=== PATIENT | female | born 1945 | race Caucasian/White ===

== ENCOUNTER 2017-04-03 15:08 | Inpatient (IN) | payer MEDICARE, MEDICAID, OTHER ==
[2017-04-03] MEDS ORDERED: MIDAZOLAM 1 MG/ML 2 ML INJ ×2 (18:13→19:08)
[2017-04-03] MEDS ORDERED: FENTAnyl 50 MCG/ML VIAL (18:14)
[2017-04-03] MEDS ORDERED: ROCURONIUM 50 MG INJ (18:41)
[2017-04-03] MEDS ORDERED: ETOMIDATE 20 MG INJ (18:41)
[2017-04-03] MEDS ORDERED: LIDOCAINE 2% (SDV) 5 ML INJ (18:41)
[2017-04-03] MEDS ORDERED: CEFAZOLIN 1 GM INJ (18:41)
[2017-04-03] MEDS ORDERED: LABETALOL HCL 20MG INJ (19:10)
[2017-04-03] MEDS: LABETALOL HCL 20MG INJ IV (19:19)
[2017-04-03] MEDS: MIDAZOLAM 1 MG/ML 2 ML INJ IV ×2 (19:19→19:54)
[2017-04-03] MEDS: DEXTROSE 5%-0.45% NACL 1,000 ML IV (19:22)
[2017-04-03] MEDS: LORAZEPAM 2 MG INJ IV (19:27)
[2017-04-03] MEDS ORDERED: ALBUTEROL HFA 8 GM INHALER INH (19:30)
[2017-04-03] MEDS: ACCU-CHEK XX (19:30)
[2017-04-03] MEDS ORDERED: HYDROmorphONE (0.2 MG/ML) 10ML SYG IV ×2 (19:30)
[2017-04-03] MEDS ORDERED: morphine 2 MG INJ IV (19:30)
[2017-04-03] MEDS ORDERED: hydrALAzine 20 MG INJ IV (19:30)
[2017-04-03] MEDS ORDERED: ACETAMINOPHEN 650 MG SUPP PR (19:30)
[2017-04-03] MEDS ORDERED: NACL 0.9% 3 ML SYG IV (19:30)
[2017-04-03] MEDS ORDERED: MEPERIDINE 25 MG INJ IV (19:30)
[2017-04-03] MEDS ORDERED: ONDANSETRON 4 MG INJ IV ×2 (19:30)
[2017-04-03] MEDS: FENTAnyl 50 MCG/ML VIAL IV ×2 (19:54→20:41)
[2017-04-03] MEDS ORDERED: GLUCOSE GEL 15 GRAM TUBE BUCCAL (20:00)
[2017-04-03] MEDS ORDERED: DEXTROSE 50% 50 ML SYRINGE IV ×2 (20:00)
[2017-04-03] MEDS ORDERED: GLUCOSE GEL 15 GRAM TUBE PO ×2 (20:00)
[2017-04-03] MEDS ORDERED: GLUCAGON 1 MG INJ IM (20:00)
[2017-04-03] MEDS: INSULIN ASPART [NOVOLOG] 3 ML PEN SC (21:00)
[2017-04-03] MEDS: ALBUTEROL HFA 8 GM INHALER INH (21:00)
[2017-04-03] MEDS: IPRATROPIUM (HFA) 12.9 GM INHALER INH (21:00)
[2017-04-03] MEDS: ATORVASTATIN 80 MG TAB PO (21:30)
[2017-04-03] MEDS: GABAPENTIN 400 MG CAP NGT (21:31)
[2017-04-03] MEDS: RANOLAZINE (SR) 500 MG TAB PO (21:31)
[2017-04-03] MEDS: METHIMAZOLE 5 MG TAB PO (21:32)
[2017-04-03] MEDS: METOPROLOL 25 MG TAB NGT (21:32)
[2017-04-03] MEDS: MEROPENEM 1 GM/50ML(PMX) 50 ML IVPB (22:14)
[2017-04-04] MEDS: ACCU-CHEK XX
[2017-04-04] MEDS: ALBUTEROL HFA 8 GM INHALER INH ×6 (01:00→21:43)
[2017-04-04] MEDS: IPRATROPIUM (HFA) 12.9 GM INHALER INH ×7 (01:00→21:43)
[2017-04-04] MEDS: LABETALOL HCL 20MG INJ IV (01:52)
[2017-04-04] MEDS: hydrALAzine 20 MG INJ IV (04:27)
[2017-04-04 05:19] LABS: ADD MAN DIFF? NO
[2017-04-04 05:28] LABS: WHITE BLOOD COUNT 7.6 10^3/ul (4.8-10.8)
[2017-04-04 05:28] LABS: ABNORMAL IP MESSAGE 1; HEMATOCRIT 29.9 % (37.0-47.0); HEMOGLOBIN 9.1 g/dl (12.0-16.0); LYMPHOCYTES # 0.3 10^3/ul (0.8-2.9); LYMPHOCYTES % 3.3 % (15.0-51.0); MEAN CORPUSCULAR HEMOGLOBIN 28.8 pg (29.0-33.0); MEAN CORPUSCULAR HGB CONC 30.4 g/dl (32.0-37.0); MEAN CORPUSCULAR VOLUME 94.6 fl (82.0-101.0); MEAN PLATELET VOLUME 10.1 fl (7.4-10.4); MONOCYTE # 0.2 10^3/ul (0.3-0.9); MONOCYTES % 2.4 % (0.0-11.0); NEUTROPHIL # 7.2 10^3/ul (1.6-7.5); NEUTROPHILS % 93.6 % (39.0-77.0); PLATELET COUNT 132 10^3/UL (140-415); RED BLOOD COUNT 3.16 10^6/ul (4.20-5.40); RED CELL DISTRIBUTION WIDTH 14.6 % (11.5-14.5)
[2017-04-04 05:31] LABS: HOLD TRANSMISSIONS 1
[2017-04-04 05:32] LABS: POSITIVE DIFF @See below
[2017-04-04] MEDS: MEROPENEM 1 GM/50ML(PMX) 50 ML IVPB ×3 (06:01→23:05)
[2017-04-04] MEDS: PANTOPRAZOLE 40 MG INJ IV (06:01)
[2017-04-04] MEDS: DEXTROSE 5%-0.45% NACL 1,000 ML IV (06:01)
[2017-04-04 06:05] LABS: ALANINE AMINOTRANSFERASE 39 IU/L (13-69); ALBUMIN 2.4 g/dl (3.3-4.9); ALBUMIN/GLOBULIN RATIO 0.92; ALKALINE PHOSPHATASE 103 IU/L (42-121); ANION GAP 11 (8-16); ASPARTATE AMINO TRANSFERASE 21 IU/L (15-46); CARBON DIOXIDE 35 mmol/L (21-31); CHLORIDE 108 mmol/L (97-110); GLUCOSE 161 mg/dl (70-220); MAGNESIUM 2.3 mg/dl (1.7-2.5)
[2017-04-04 07:13] LABS: BLOOD UREA NITROGEN 72 mg/dl (7-20); CALCIUM 9.7 mg/dl (8.4-10.2); CREATININE 0.78 mg/dl (0.44-1.00); POTASSIUM 3.7 mmol/L (3.5-5.1); SODIUM 150 mmol/L (135-144); THYROID STIMULATING HORMONE < 0.015 MIU/L (0.465-4.680)
[2017-04-04] MEDS: INSULIN ASPART [NOVOLOG] 3 ML PEN SC ×4 (08:08→21:00)
[2017-04-04] MEDS: LORAZEPAM 2 MG INJ IV ×4 (08:34→17:40)
[2017-04-04] MEDS: morphine 2 MG INJ IV ×3 (08:34→15:13)
[2017-04-04] MEDS: GABAPENTIN 400 MG CAP NGT ×4 (09:19→22:30)
[2017-04-04] MEDS: RANOLAZINE (SR) 500 MG TAB PO ×2 (09:19→22:31)
[2017-04-04] MEDS: METOPROLOL 25 MG TAB NGT ×2 (09:19→22:31)
[2017-04-04] MEDS: predniSONE 50 MG TAB NGT (09:19)
[2017-04-04] MEDS: METHIMAZOLE 5 MG TAB PO ×3 (09:19→23:06)
[2017-04-04] MEDS: BALSAM PERU/CASTOR OIL 60 GM TUBE TOP (10:46)
[2017-04-04] MEDS: ATORVASTATIN 80 MG TAB PO (22:30)
[2017-04-04 23:38] LABS: AADO2 Arterial 129.3 mmHg (7.0-24.0); Allen Test ACCEPTAB; Arterial Base Excess 10.3 mmol/L (-3.0-3); Arterial Blood Gas Oxygen Sat 97.2 mmHG (95.0-100.0); Arterial COHb 0.3 % (0.0-3.0); Arterial Fraction of Oxyhgb 96.7 % (93.0-99.0); Arterial HCO3 35.2 mmol/L (22.0-26.0); Arterial MetHb 0.2 % (0.0-1.5); Arterial Total Hemglobin 10.4 g/dl (12.0-18.0); MODE VENT - AC; Site Right Radial
[2017-04-05] MEDS: DEXTROSE 5%-0.45% NACL 1,000 ML IV (00:14)
[2017-04-05] MEDS: IPRATROPIUM (HFA) 12.9 GM INHALER INH ×5 (01:24→19:30)
[2017-04-05] MEDS: ALBUTEROL HFA 8 GM INHALER INH (01:24)
[2017-04-05] MEDS: hydrALAzine 20 MG INJ IV ×2 (04:27→16:33)
[2017-04-05 05:24] LABS: Allen Test ACCEPTAB; Arterial Base Excess 9.4 mmol/L (-3.0-3); Arterial Blood Gas Oxygen Sat 94.4 mmHG (95.0-100.0); Arterial COHb 0.3 % (0.0-3.0); Arterial Fraction of Oxyhgb 93.9 % (93.0-99.0); Arterial MetHb 0.2 % (0.0-1.5); Arterial Total Hemglobin 9.6 g/dl (12.0-18.0); MODE VENT - AC; Site Right Radial
[2017-04-05] MEDS: PANTOPRAZOLE 40 MG INJ IV (05:40)
[2017-04-05] MEDS: MEROPENEM 1 GM/50ML(PMX) 50 ML IVPB ×3 (05:40→22:36)
[2017-04-05] MEDS: ACCU-CHEK XX ×4 (06:00→17:28)
[2017-04-05] MEDS: GABAPENTIN 400 MG CAP NGT ×4 (08:54→22:38)
[2017-04-05] MEDS: ASPIRIN 81 MG TAB GTB (08:54)
[2017-04-05] MEDS: RANOLAZINE (SR) 500 MG TAB PO ×2 (08:54→22:37)
[2017-04-05] MEDS: METOPROLOL 25 MG TAB NGT ×2 (08:54→22:37)
[2017-04-05] MEDS: predniSONE 50 MG TAB NGT (08:54)
[2017-04-05] MEDS: METHIMAZOLE 5 MG TAB PO ×3 (08:55→22:38)
[2017-04-05] MEDS: BALSAM PERU/CASTOR OIL 60 GM TUBE TOP (09:06)
[2017-04-05] MEDS: INSULIN ASPART [NOVOLOG] 3 ML PEN SC (09:08)
[2017-04-05] MEDS: LEVALBUTEROL (HFA) 15 GM INHALER INH ×4 (09:22→19:30)
[2017-04-05] MEDS ORDERED: INSULIN ASPART [NOVOLOG] 3 ML PEN SC (12:00)
[2017-04-05] MEDS: Insulin NOVOLOG SS MODERATE Algorithm(NPO/TPN/ENTERAL FEEDS) SC ×3 (12:52→23:08)
[2017-04-05] MEDS: DEXTROSE 5% 1,000 ML IV (16:20)
[2017-04-05] MEDS: morphine 2 MG INJ IV (17:33)
[2017-04-05] MEDS: ATORVASTATIN 80 MG TAB PO (22:37)
[2017-04-05] MEDS: INSULIN DETEMIR [LEVEMIR] 3ML CART SC (23:11)
[2017-04-06] MEDS: Insulin NOVOLOG SS MODERATE Algorithm(NPO/TPN/ENTERAL FEEDS) SC ×5 (01:56→17:07)
[2017-04-06] MEDS: morphine 2 MG INJ IV (04:57)
[2017-04-06] MEDS: ACETAMINOPHEN 325 MG TAB PO (05:25)
[2017-04-06] MEDS: PANTOPRAZOLE 40 MG INJ IV (05:25)
[2017-04-06] MEDS: MEROPENEM 1 GM/50ML(PMX) 50 ML IVPB ×2 (05:26→14:08)
[2017-04-06 07:30] LABS: ADD MAN DIFF? NO
[2017-04-06 07:36] LABS: ABNORMAL IP MESSAGE 1; EOSINOPHILS % 0.1 % (0.0-7.0); HEMATOCRIT 28.1 % (37.0-47.0); HEMOGLOBIN 8.6 g/dl (12.0-16.0); LYMPHOCYTES # 0.5 10^3/ul (0.8-2.9); LYMPHOCYTES % 4.6 % (15.0-51.0); MEAN CORPUSCULAR HEMOGLOBIN 29.2 pg (29.0-33.0); MEAN CORPUSCULAR HGB CONC 30.6 g/dl (32.0-37.0); MEAN CORPUSCULAR VOLUME 95.3 fl (82.0-101.0); MONOCYTE # 0.4 10^3/ul (0.3-0.9); MONOCYTES % 4.1 % (0.0-11.0); NEUTROPHIL # 9.2 10^3/ul (1.6-7.5); NEUTROPHILS % 90.8 % (39.0-77.0); PLATELET COUNT 122 10^3/UL (140-415); RED BLOOD COUNT 2.95 10^6/ul (4.20-5.40); RED CELL DISTRIBUTION WIDTH 15.3 % (11.5-14.5)
[2017-04-06 07:36] LABS: WHITE BLOOD COUNT 10.1 10^3/ul (4.8-10.8)
[2017-04-06 07:46] LABS: POSITIVE DIFF @See below
[2017-04-06 08:19] LABS: ALANINE AMINOTRANSFERASE 29 IU/L (13-69); ALBUMIN 2.1 g/dl (3.3-4.9); ALBUMIN/GLOBULIN RATIO 0.91; ALKALINE PHOSPHATASE 84 IU/L (42-121); ANION GAP 10 (8-16); ASPARTATE AMINO TRANSFERASE 18 IU/L (15-46); BILIRUBIN,INDIRECT 0.1 mg/dl (0-1.1); BILIRUBIN,TOTAL 0.1 mg/dl (0.2-1.3); BLOOD UREA NITROGEN 57 mg/dl (7-20); CALCIUM 8.8 mg/dl (8.4-10.2); CARBON DIOXIDE 35 mmol/L (21-31); CHLORIDE 109 mmol/L (97-110); CREATININE 0.68 mg/dl (0.44-1.00); GLUCOSE 195 mg/dl (70-220); POTASSIUM 3.5 mmol/L (3.5-5.1); SODIUM 150 mmol/L (135-144); TOTAL PROTEIN 4.4 g/dl (6.1-8.1)
[2017-04-06 08:21] LABS: PHOSPHORUS 2.3 mg/dl (2.5-4.9)
[2017-04-06 08:21] LABS: MAGNESIUM 2.1 mg/dl (1.7-2.5)
[2017-04-06] MEDS: IPRATROPIUM (HFA) 12.9 GM INHALER INH ×4 (08:43→19:20)
[2017-04-06] MEDS: LEVALBUTEROL (HFA) 15 GM INHALER INH ×4 (08:45→19:20)
[2017-04-06] MEDS: METHIMAZOLE 5 MG TAB PO ×2 (09:02→12:45)
[2017-04-06] MEDS: predniSONE 50 MG TAB NGT (09:02)
[2017-04-06] MEDS: ASPIRIN 81 MG TAB GTB (09:02)
[2017-04-06] MEDS: METOPROLOL 25 MG TAB NGT (09:02)
[2017-04-06] MEDS: GABAPENTIN 400 MG CAP NGT ×3 (09:02→16:40)
[2017-04-06] MEDS: RANOLAZINE (SR) 500 MG TAB PO (09:03)
[2017-04-06] MEDS: BALSAM PERU/CASTOR OIL 60 GM TUBE TOP (09:38)
[2017-04-06] MEDS: NPH, HUMAN INSULIN ISOPHANE 3ML VIAL SC (09:38)
[2017-04-06 11:26] LABS: AADO2 Arterial 116.8 mmHg (7.0-24.0); Allen Test ACCEPTAB; Arterial Base Excess 10.8 mmol/L (-3.0-3); Arterial Blood Gas Oxygen Sat 97.1 mmHG (95.0-100.0); Arterial COHb 0.3 % (0.0-3.0); Arterial Fraction of Oxyhgb 96.7 % (93.0-99.0); Arterial HCO3 36.5 mmol/L (22.0-26.0); Arterial MetHb 0.1 % (0.0-1.5); Arterial Total Hemglobin 9.9 g/dl (12.0-18.0); Blood Gas PS 10; MODE VENT - SIMV; Site Right Radial
[2017-04-06] MEDS: DEXTROSE 5% 1,000 ML IV (15:30)
== END 2017-04-06 20:40 | DRG 4 ==
LOC: REC 19:07 → TEL 04-04 19:50 → SUR 15:08 → SDS 15:27 → SUR 19:07 → REC 19:16
PROVIDERS: Thoracic Surgery (Cardiothoracic Vascular Surgery)
PROC: 0B110F4 Bypass Trachea to Cutaneous with Tracheostomy Device, Open Approach (ICD-10-PCS; principal; 2017-04-03 15:30)
PROC: 5A1945Z Respiratory Ventilation, 24-96 Consecutive Hours (ICD-10-PCS; 2017-04-03 15:30)
PROC: 5A09357 Assistance with Respiratory Ventilation, Less than 24 Consecutive Hours, Continuous Positive Airway Pressure (ICD-10-PCS; 2017-04-03 18:05)
PROC: 4A133R1 Monitoring of Arterial Saturation, Peripheral, Percutaneous Approach (ICD-10-PCS; 2017-04-03 18:05)
DX: J96.11 Chronic respiratory failure with hypoxia (principal); I21.4 Non-ST elevation (NSTEMI) myocardial infarction; G93.40 Encephalopathy, unspecified; J18.9 Pneumonia, unspecified organism; I11.0 Hypertensive heart disease with heart failure; E87.0 Hyperosmolality and hypernatremia; J44.0 Chronic obstructive pulmonary disease with (acute) lower respiratory infection; E11.40 Type 2 diabetes mellitus with diabetic neuropathy, unspecified; I50.9 Heart failure, unspecified; E11.65 Type 2 diabetes mellitus with hyperglycemia; Z68.44 Body mass index [BMI] 60.0-69.9, adult; E66.2 Morbid (severe) obesity with alveolar hypoventilation; J96.12 Chronic respiratory failure with hypercapnia; I48.91 Unspecified atrial fibrillation; R13.10 Dysphagia, unspecified; E05.80 Other thyrotoxicosis without thyrotoxic crisis or storm; K59.00 Constipation, unspecified; D64.9 Anemia, unspecified; I25.10 Atherosclerotic heart disease of native coronary artery without angina pectoris; E78.00 Pure hypercholesterolemia, unspecified; R19.5 Other fecal abnormalities; G47.00 Insomnia, unspecified; E88.09 Other disorders of plasma-protein metabolism, not elsewhere classified; G89.4 Chronic pain syndrome; Z87.891 Personal history of nicotine dependence; T38.0X5A Adverse effect of glucocorticoids and synthetic analogues, initial encounter; Z87.440 Personal history of urinary (tract) infections; T46.2X5A Adverse effect of other antidysrhythmic drugs, initial encounter
CPT/HCPCS: 36600; 71045; 80053; 82803; 82962; 83735; 84100; 84443; 85025; 87081; 94002; 94003; 94640; 94664; 94799; 99217; G0378

== ENCOUNTER → 2017-04-17 | Day surgery (SDC) | payer OTHER, MEDICAID, MEDICARE ==
[~2017-04-17] MED LIST: ALBUTEROL 0.083% (NEB) 2.5 MG/3 ML AMP HHN; CEFAZOLIN 1 GM INJ; EPHEDrine SULFATE 50 MG/5 ML SYG; EPHEDrine SULFATE 50 MG/5 ML SYG IV; FENTAnyl 50 MCG/ML VIAL; FENTAnyl 50 MCG/ML VIAL IV; LACTATED RINGER'S 250 ML IV; ONDANSETRON 4 MG INJ IV
== END | disposition home or self-care (01) ==
LOC: SDS 08:33
DX: R13.10 Dysphagia, unspecified (principal); J96.90 Respiratory failure, unspecified, unspecified whether with hypoxia or hypercapnia; I48.91 Unspecified atrial fibrillation; E11.9 Type 2 diabetes mellitus without complications; E66.01 Morbid (severe) obesity due to excess calories; Z68.45 Body mass index [BMI] 70 or greater, adult
CPT/HCPCS: 43246; 94002

== ENCOUNTER 2017-04-21 14:01 | Inpatient (IN) | payer MEDICARE, OTHER ==
[2017-04-21] MEDS ORDERED: NORepinephrine 8MG/250 ML (PMX 250 ML (16:34)
[2017-04-21 16:58] LABS: AADO2 Arterial 604.5 mmHg (7.0-24.0); Allen Test ACCEPTAB; Arterial Base Excess -3.1 mmol/L (-3.0-3); Arterial COHb 0.3 % (0.0-3.0); Arterial Fraction of Oxyhgb 93.6 % (93.0-99.0); Arterial HCO3 21.6 mmol/L (22.0-26.0); Arterial MetHb 0.1 % (0.0-1.5); Arterial pCO2 37.2 mmhg (35-45); MODE VENT - AC; Site Right Radial
[2017-04-21] MEDS ORDERED: NORepinephrine 8MG/250 ML (PMX 250 ML IV (17:30)
[2017-04-21] MEDS ORDERED: ACETAMINOPHEN 650 MG SUPP PR (19:30)
[2017-04-21] MEDS ORDERED: ONDANSETRON 4 MG INJ IV (19:30)
[2017-04-21] MEDS ORDERED: POLYETHYLENE GLYCOL 17 GM PACKET GTB (19:30)
[2017-04-21] MEDS ORDERED: LORAZEPAM 0.5 MG TAB PO (19:30)
[2017-04-21] MEDS ORDERED: DEXTROSE 50% 50 ML SYRINGE IV (20:30)
[2017-04-21] MEDS ORDERED: GLUCAGON 1 MG INJ IM (20:30)
[2017-04-21] MEDS ORDERED: GLUCOSE GEL 15 GRAM TUBE PO ×2 (20:30)
[2017-04-21] MEDS ORDERED: GLUCOSE GEL 15 GRAM TUBE BUCCAL (20:30)
[2017-04-21] MEDS: IPRATROPIUM (HFA) 12.9 GM INHALER INH (20:42)
[2017-04-21] MEDS: ALBUTEROL HFA 8 GM INHALER INH (20:42)
[2017-04-21] MEDS: METOPROLOL 25 MG TAB PO (20:59)
[2017-04-21] MEDS: traZODone 50 MG TAB PO (21:00)
[2017-04-21] MEDS ORDERED: ALBUTEROL HFA 8 GM INHALER INH (21:00)
[2017-04-21] MEDS: NYSTATIN 30 GM POWDER BTL TOP (21:00)
[2017-04-21] MEDS ORDERED: ALBUTEROL/IPRATROPIUM (NEB) 3 ML AMP HHN (21:00)
[2017-04-21] MEDS: INSULIN ASPART [NOVOLOG] 3 ML PEN SC (21:00)
[2017-04-21] MEDS: LINEZOLID 600 MG/D5W (PMX) 300 ML IVPB (21:19)
[2017-04-21] MEDS: GABAPENTIN 400 MG CAP PO (21:25)
[2017-04-21] MEDS: FERROUS SULFATE (EC) 325 MG TAB PO (21:25)
[2017-04-21] MEDS: METHIMAZOLE 5 MG TAB PO (21:25)
[2017-04-21] MEDS: ATORVASTATIN 40 MG TAB GTB (21:26)
[2017-04-21] MEDS: DIGOXIN 0.125 MG TAB GTB (21:26)
[2017-04-21] MEDS: BALSAM PERU/CASTOR OIL 60 GM TUBE TOP (21:27)
[2017-04-21] MEDS: INSULIN DETEMIR [LEVEMIR] 3ML CART SC (21:31)
[2017-04-21] MEDS: ERYTHROMYCIN BASE (EC) 250 MG TAB PO (22:00)
[2017-04-22] MEDS: MEROPENEM 1 GM/50ML(PMX) 50 ML IVPB ×3 (00:16→21:42)
[2017-04-22] MEDS: METOCLOPRAMIDE (1 MG/ML) 10 ML CUP PO ×4 (00:22→18:06)
[2017-04-22] MEDS: INSULIN ASPART [NOVOLOG] 3 ML PEN SC ×3 (01:00→09:00)
[2017-04-22] MEDS: ALBUTEROL HFA 8 GM INHALER INH ×4 (01:28→19:37)
[2017-04-22] MEDS: IPRATROPIUM (HFA) 12.9 GM INHALER INH ×4 (01:28→19:37)
[2017-04-22] MEDS: DEXTROSE 50% 50 ML SYRINGE IV ×2 (01:52→05:03)
[2017-04-22] MEDS: ACCU-CHEK XX ×14 (02:00→23:00)
[2017-04-22] MEDS: LANSOPRAZOLE 30 MG CAP GTB (06:00)
[2017-04-22] MEDS: ERYTHROMYCIN BASE (EC) 250 MG TAB PO ×3 (06:00→22:00)
[2017-04-22 06:15] LABS: AADO2 Arterial 615.6 mmHg (7.0-24.0); Allen Test ACCEPTAB; Arterial Base Excess -4.4 mmol/L (-3.0-3); Arterial Blood Gas Oxygen Sat 90.9 mmHG (95.0-100.0); Arterial COHb 0.3 % (0.0-3.0); Arterial Fraction of Oxyhgb 90.4 % (93.0-99.0); Arterial HCO3 20.6 mmol/L (22.0-26.0); Arterial MetHb 0.2 % (0.0-1.5); Arterial Total Hemglobin 12.1 g/dl (12.0-18.0); Arterial pCO2 37.6 mmhg (35-45); Blood Gas Mean Airway Pressure 12; MODE VENT - AC; Site Right Radial
[2017-04-22 07:01] LABS: ABNORMAL IP MESSAGE 1; HEMATOCRIT 36.6 % (37.0-47.0); HEMOGLOBIN 11.4 g/dl (12.0-16.0); MEAN CORPUSCULAR HEMOGLOBIN 28.2 pg (29.0-33.0); MEAN CORPUSCULAR HGB CONC 31.1 g/dl (32.0-37.0); MEAN CORPUSCULAR VOLUME 90.6 fl (82.0-101.0); MEAN PLATELET VOLUME 13.1 fl (7.4-10.4); NUCLEATED RED BLOOD CELLS% 0.5 /100WBC (0.0-0.0); PLATELET COUNT 136 10^3/UL (140-415); RED BLOOD COUNT 4.04 10^6/ul (4.20-5.40); RED CELL DISTRIBUTION WIDTH 17.7 % (11.5-14.5)
[2017-04-22 07:01] LABS: WHITE BLOOD COUNT 21.1 10^3/ul (4.8-10.8)
[2017-04-22 07:12] LABS: POSITIVE DIFF @See below
[2017-04-22 07:13] LABS: ADD MAN DIFF? YES
[2017-04-22 07:33] LABS: LACTIC ACID 5.6 mmol/L (0.5-2.0)
[2017-04-22 07:40] LABS: PHOSPHORUS 3.1 mg/dl (2.5-4.9)
[2017-04-22 07:40] LABS: MAGNESIUM 2.6 mg/dl (1.7-2.5)
[2017-04-22 07:42] LABS: ALANINE AMINOTRANSFERASE 39 IU/L (13-69); ALBUMIN 1.6 g/dl (3.3-4.9); ALBUMIN/GLOBULIN RATIO 0.72; ALKALINE PHOSPHATASE 333 IU/L (42-121); ANION GAP 16 (8-16); ASPARTATE AMINO TRANSFERASE 94 IU/L (15-46); BLOOD UREA NITROGEN 61 mg/dl (7-20); CALCIUM 8.1 mg/dl (8.4-10.2); CARBON DIOXIDE 23 mmol/L (21-31); CHLORIDE 100 mmol/L (97-110); CREATININE 1.47 mg/dl (0.44-1.00); GLUCOSE 109 mg/dl (70-220); POTASSIUM 4.4 mmol/L (3.5-5.1); SODIUM 135 mmol/L (135-144); TOTAL PROTEIN 3.8 g/dl (6.1-8.1)
[2017-04-22] MEDS ORDERED: NPH, HUMAN INSULIN ISOPHANE 3ML VIAL SC (08:00)
[2017-04-22 08:06] LABS: THYROID STIMULATING HORMONE < 0.015 MIU/L (0.465-4.680)
[2017-04-22] MEDS: NORepinephrine 32 MG in DEXTROSE 5% 218 ML IV (09:00)
[2017-04-22] MEDS: METOPROLOL 25 MG TAB PO ×2 (09:00→21:00)
[2017-04-22 09:22] LABS: BAND NEUTROPHILS #M 8.8 10^3/ul (0.0-0.6); BAND NEUTROPHILS % (M) 42 % (0-4); ERYTHROBLAST% (NRBC) (M) 1 % (0-0); GIANT THROMBO% (M) 6 % (0-0); LYMPHOCYTES #M 1.6 10^3/ul (0.8-2.9); LYMPHOCYTES % (M) 8 % (15-51); METAMYELOCYTES %M 5 % (0-0); MONOCYTE #M 0.2 10^3/ul (0.3-0.9); MONOCYTES % (M) 1 % (0-11); MYELOCYTES #M 0.8 10^3/ul (0.0-0.0); MYELOCYTES % (M) 4 % (0-0); POIKILOCYTOSIS 2+ (0-0); POLYCHROMASIA 1+ (0-0); SEG NEUT #M 10.3 10^3/ul (1.7-7.5); SEGMENTED NEUTROPHILS (M) % 40 % (39-77); SMUDGE%M 3 % (0-0)
[2017-04-22] MEDS: NYSTATIN 30 GM POWDER BTL TOP ×2 (09:27→21:00)
[2017-04-22] MEDS: LINEZOLID 600 MG/D5W (PMX) 300 ML IVPB ×2 (09:27→21:36)
[2017-04-22] MEDS: predniSONE 50 MG TAB PO (09:28)
[2017-04-22] MEDS: FERROUS SULFATE (EC) 325 MG TAB PO ×2 (09:28→21:00)
[2017-04-22] MEDS: GABAPENTIN 400 MG CAP PO ×4 (09:28→21:00)
[2017-04-22] MEDS: LINAGLIPTIN 5 MG TABLET PO (09:29)
[2017-04-22] MEDS: METHIMAZOLE 5 MG TAB PO ×3 (09:29→21:00)
[2017-04-22] MEDS: BALSAM PERU/CASTOR OIL 60 GM TUBE TOP (09:49)
[2017-04-22] MEDS: PHENYLephrine 160 MG in DEXTROSE 5% 484 ML IV (10:20)
[2017-04-22] MEDS ORDERED: DEXTROSE 5%-0.45% NACL 1,000 ML IV (11:00)
[2017-04-22] MEDS ORDERED: LIDOCAINE 1% (MPF) 5 ML VIAL SC (11:00)
[2017-04-22] MEDS: SODIUM CHLORIDE 23.4% 77 MEQ in DEXTROSE 10% 1,000 ML IV (11:33)
[2017-04-22] MEDS ORDERED: INSULIN HUMAN REGULAR 100 UNIT in SOD CHLORIDE 0.9% 99 ML IV (12:00)
[2017-04-22] MEDS: CASPOFUNGIN 70 MG in SOD CHLORIDE 0.9% 250 ML IVPB (18:02)
[2017-04-22] MEDS ORDERED: NORepinephrine 8MG/250 ML (PMX 250 ML (18:07)
[2017-04-22] MEDS: traZODone 50 MG TAB PO (21:00)
[2017-04-22] MEDS: ATORVASTATIN 40 MG TAB GTB (21:00)
[2017-04-22] MEDS: DIGOXIN 0.125 MG TAB GTB (21:00)
[2017-04-22] MEDS: metroNIDAZOLE 500 MG/NS (PMX) 100 ML IVPB (22:22)
[2017-04-23] MEDS: METOCLOPRAMIDE (1 MG/ML) 10 ML CUP PO
[2017-04-23] MEDS: DOPamine 1,600 MG in DEXTROSE 5% 210 ML IV (00:20)
[2017-04-23] MEDS: ACCU-CHEK XX ×5 (01:00→04:00)
[2017-04-23] MEDS: PHENYLephrine 160 MG in DEXTROSE 5% 484 ML IV (01:05)
[2017-04-23] MEDS: IPRATROPIUM (HFA) 12.9 GM INHALER INH (01:35)
[2017-04-23] MEDS: ALBUTEROL HFA 8 GM INHALER INH (01:35)
[2017-04-23 05:48] LABS: ADD MAN DIFF? NO
[2017-04-23 06:09] LABS: WHITE BLOOD COUNT 17.2 10^3/ul (4.8-10.8)
[2017-04-23 06:09] LABS: ABNORMAL IP MESSAGE 1; BASOPHILS % 0.2 % (0.0-2.0); LYMPHOCYTES # 2.7 10^3/ul (0.8-2.9); LYMPHOCYTES % 15.6 % (15.0-51.0); MEAN CORPUSCULAR HEMOGLOBIN 28.5 pg (29.0-33.0); MEAN CORPUSCULAR HGB CONC 26.8 g/dl (32.0-37.0); MEAN CORPUSCULAR VOLUME 106.1 fl (82.0-101.0); MEAN PLATELET VOLUME 11.6 fl (7.4-10.4); MONOCYTE # 0.4 10^3/ul (0.3-0.9); MONOCYTES % 2.4 % (0.0-11.0); NEUTROPHIL # 11.4 10^3/ul (1.6-7.5); NEUTROPHILS % 65.9 % (39.0-77.0); NUCLEATED RED BLOOD CELLS # 0.1 10^3/ul (0.0-0.0); NUCLEATED RED BLOOD CELLS% 0.6 /100WBC (0.0-0.0); PLATELET COUNT 78 10^3/UL (140-415); RED BLOOD COUNT 1.79 10^6/ul (4.20-5.40); RED CELL DISTRIBUTION WIDTH 18.6 % (11.5-14.5)
[2017-04-23 06:25] LABS: INR 3.33; PROTIME 34.8 Sec (11.9-14.9); PT RATIO 2.7
[2017-04-23 06:26] LABS: POSITIVE DIFF @See below
[2017-04-23 06:29] LABS: HEMOGLOBIN 5.1 g/dl (12.0-16.0)
[2017-04-23 06:39] LABS: ALANINE AMINOTRANSFERASE 282 IU/L (13-69); ALBUMIN 1.4 g/dl (3.3-4.9); ALBUMIN/GLOBULIN RATIO 0.73; ALKALINE PHOSPHATASE 255 IU/L (42-121); ANION GAP 27 (8-16); BLOOD UREA NITROGEN 55 mg/dl (7-20); CALCIUM 7.1 mg/dl (8.4-10.2); CARBON DIOXIDE 12 mmol/L (21-31); CHLORIDE 97 mmol/L (97-110); GLUCOSE 207 mg/dl (70-220); SODIUM 128 mmol/L (135-144); TOTAL PROTEIN 3.3 g/dl (6.1-8.1)
[2017-04-23 07:04] LABS: CREATININE 1.63 mg/dl (0.44-1.00)
[2017-04-23 07:30] LABS: ASPARTATE AMINO TRANSFERASE 1496 IU/L (15-46); POTASSIUM 7.6 mmol/L (3.5-5.1)
[2017-04-23 08:22] LABS: PARTIAL THROMBOPLASTIN TIME 82.2 Sec (25.0-35.0)
[2017-04-23 08:28] LABS: MAGNESIUM 2.8 mg/dl (1.7-2.5)
[2017-04-23 13:48] LABS: ADD UMIC YES; UR AMORPHOUS CRYSTAL MODERATE /HPF (NONE SEEN); UR ASCORBIC ACID NEGATIVE (NEGATIVE); UR BACTERIA FEW /HPF (NONE SEEN); UR BILIRUBIN (Dip) NEGATIVE (NEGATIVE); UR BLOOD (Dip) 3+ mg/dL (NEGATIVE); UR BUDDING YEAST MODERATE /HPF (NONE SEEN); UR CLARITY CLOUDY (CLEAR); UR COLOR AMBER (YELLOW); UR GLUCOSE (Dip) NEGATIVE (NEGATIVE); UR KETONES (Dip) NEGATIVE (NEGATIVE); UR LEUKOCYTE ESTERASE (Dip) 1+ Leu/ul (NEGATIVE); UR NITRITE (Dip) NEGATIVE (NEGATIVE); UR RBC > 182 /HPF (0-5); UR SPECIFIC GRAVITY (Dip) 1.019 (1.003-1.030); UR SQUAMOUS EPITHELIAL CELL FEW /HPF (FEW); UR TOTAL PROTEIN (Dip) 2+ mg/dl (NEGATIVE); UR UROBILINOGEN (Dip) 1+ mg/dL (NEGATIVE); UR WBC > 182 /HPF (0-5)
[2017-04-23] MEDS ORDERED: CASPOFUNGIN 50 MG in SOD CHLORIDE 0.9% 250 ML IVPB (16:00)
[2017-04-28] MEDS ORDERED: EPOETIN 10000 UNITS/1 ML INJ (ESRD) SC (17:00)
== END 2017-04-23 05:19 | disposition expired | DRG 871 ==
LOC: ICU 14:01
PROC: 5A1945Z Respiratory Ventilation, 24-96 Consecutive Hours (ICD-10-PCS; principal; 2017-04-21)
DX: A41.9 Sepsis, unspecified organism (principal); R65.21 Severe sepsis with septic shock; J96.20 Acute and chronic respiratory failure, unspecified whether with hypoxia or hypercapnia; Z99.11 Dependence on respirator [ventilator] status; E05.81 Other thyrotoxicosis with thyrotoxic crisis or storm; N18.6 End stage renal disease; N17.9 Acute kidney failure, unspecified; Z68.45 Body mass index [BMI] 70 or greater, adult; I12.0 Hypertensive chronic kidney disease with stage 5 chronic kidney disease or end stage renal disease; E11.22 Type 2 diabetes mellitus with diabetic chronic kidney disease; E11.65 Type 2 diabetes mellitus with hyperglycemia; E66.01 Morbid (severe) obesity due to excess calories; Z93.1 Gastrostomy status; I25.10 Atherosclerotic heart disease of native coronary artery without angina pectoris; Z93.0 Tracheostomy status; F17.210 Nicotine dependence, cigarettes, uncomplicated; Z66 Do not resuscitate; T46.2X5A Adverse effect of other antidysrhythmic drugs, initial encounter; Y92.099 Unspecified place in other non-institutional residence as the place of occurrence of the external cause; Z79.4 Long term (current) use of insulin
CPT/HCPCS: 36600; 71045; 74018; 80053; 81001; 82803; 82962; 83605; 83735; 84100; 84443; 85025; 85610; 85730; 87040; 87070; 87081; 87086; 89220; 94002; 94003; 94640